=== PATIENT | male | born 1990 | race Caucasian/White ===

== ENCOUNTER 2019-01-12 12:11 | Emergency (ER) | payer OTHER ==
[~2019-01-12] VITALS: Ht 180.3 cm; Wt 74.0 kg
[~2019-01-12 12:11] MED LIST: NAPR-985 PO; ONDA4TAB14 PO
[2019-01-12 12:20] VITALS: BP 134/91; PULSE 101; RESP 22; Ht 180.3 cm; Wt 74.0 kg
[2019-01-12] MEDS ORDERED: ONDANSETRON (ODT) 4 MG TAB ODT STA (12:44)
[2019-01-12] MEDS ORDERED: HYDROCODONE/APAP (5/325) TAB PO ONE (13:00)
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
== END 2019-01-12 13:59 | disposition home or self-care (01) ==
LOC: FTE 12:11
DX: S20.211A Contusion of right front wall of thorax, initial encounter (principal); F17.210 Nicotine dependence, cigarettes, uncomplicated; X58.XXXA Exposure to other specified factors, initial encounter; Y92.9 Unspecified place or not applicable
CPT/HCPCS: 71100; 82962; Z7502; Z7610